=== PATIENT | male | born 1945 | race Caucasian/White ===

== ENCOUNTER 2021-05-18 06:44 | Observation (INO) | payer MEDICARE ==
[2021-05-18] MEDS ORDERED: Thrombin 5000 UNITS/5 ML VIAL ONE ×2 (08:21→10:51)
[2021-05-18] MEDS ORDERED: Fentanyl 100 MCG/2 ML VIAL ONE ×4 (08:32→12:31)
[2021-05-18] MEDS ORDERED: Dexmedetomidine 200 MCG/2 ML VIAL ONE (08:32)
[2021-05-18] MEDS ORDERED: SUGAMMADEX SODIUM 200 MG/2 ML VIAL ONE (08:33)
[2021-05-18] MEDS ORDERED: ceFAZolin (BATCH) 2 GM/100 ML BAG ONE (08:50)
[2021-05-18] MEDS ORDERED: traMADol HCl 50 MG TAB PO PRN (09:02)
[2021-05-18] MEDS ORDERED: Acetaminophen 325 MG TAB PO PRN (09:02)
[2021-05-18] MEDS ORDERED: Morphine 2 MG/ML VIAL SLOW IVP PRN (09:02)
[2021-05-18] MEDS ORDERED: Ondansetron PF 4 MG/2 ML Vial IVP PRN (09:02)
[2021-05-18] MEDS ORDERED: HYDROcodone/Acetaminophen 7.5/325 mg Tablet PO PRN (09:02)
[2021-05-18] MEDS ORDERED: Acetaminophen/Codeine 30-300mg Tablet PO PRN (09:02)
[2021-05-18] MEDS ORDERED: hydrALAZINE 20 MG/ML VIAL SLOW IVP PRN (09:04)
[2021-05-18] MEDS ORDERED: tiZANidine HCl 4 MG TAB PO PRN (09:04)
[2021-05-18] MEDS ORDERED: Rocuronium Bromide 10 MG/ML (10ML VIAL) ONE (09:11)
[2021-05-18] MEDS ORDERED: PHENYLEPHRINE-NS 100 MCG/ML 10 ML SYRINGE ONE ×4 (09:11→11:07)
[2021-05-18] MEDS ORDERED: Ondansetron PF 4 MG/2 ML Vial ONE (09:11)
[2021-05-18] MEDS ORDERED: Lidocaine 1% PF 5 ML VIAL ONE (09:11)
[2021-05-18] MEDS ORDERED: PROPOFOL 200 MG/20 ML VIAL ONE (09:11)
[2021-05-18] MEDS ORDERED: Glycopyrrolate 0.2 MG/ML 5 ML SYRINGE ONE (09:11)
[2021-05-18] MEDS ORDERED: ePHEDrine 50 MG/ML VIAL ONE (09:11)
[2021-05-18] MEDS ORDERED: Dexamethasone 20 MG/5 ML VIAL ONE (09:11)
[2021-05-18] MEDS ORDERED: Morphine 4 MG/ML VIAL SLOW IVP PRN (09:56)
[2021-05-18] MEDS ORDERED: Phenylephrine 10 MG/ML VIAL ONE ×2 (11:10→11:11)
[2021-05-18] MEDS ORDERED: Promethazine HCl 25 MG/ML VIAL IM PRN (11:42)
[2021-05-18] MEDS ORDERED: Ondansetron HCl/PF 4 MG/2 ML Vial IVP PRN (11:42)
[2021-05-18] MEDS ORDERED: Promethazine HCl 25 MG/ML VIAL IVPB PRN (11:42)
[2021-05-18] MEDS ORDERED: CARBIDOPA PO SCH ×2 (13:00→21:00)
[2021-05-18] MEDS ORDERED: LEVODOPA PO SCH ×2 (13:00→21:00)
[2021-05-18] MEDS ORDERED: Labetalol HCl 100 MG/20 ML VIAL ONE (13:31)
[2021-05-18 15:09] VITALS: BMI 29.4
[2021-05-18] MEDS: Sodium Chloride 0.9% 1,000 ML IV SCH (15:41)
[2021-05-18] MEDS ORDERED: ceFAZolin 2 GM/Dextrose 50 ML 2 GM in Premix Bag 1 BAG IVPB SCH (16:00)
[2021-05-18] MEDS ORDERED: CEFAZOLIN 2 GM, Admixture Fee 1 EACH in Sodium Chloride 0.9% 100 ML IVPB SCH (17:00)
[2021-05-18] MEDS ORDERED: Lisinopril 20 MG TAB PO SCH (17:00)
[2021-05-18] MEDS: Carbidopa/Levodopa [Rytary Er] 36.25 MG/145 MG Capsule.Er PO SCH ×2 (17:17→20:58)
[2021-05-18] MEDS: Carbidopa/Levodopa [Rytary Er] 61.25 MG/245 MG Capsule.Er PO SCH (20:58)
[2021-05-18] MEDS ORDERED: traZODone HCl 50 MG TAB PO SCH ×2 (21:00)
[2021-05-19] MEDS: Sodium Chloride 0.9% 1,000 ML IV SCH ×2 (00:43→04:25)
[2021-05-19] MEDS ORDERED: CEFAZOLIN 2 GM, Admixture Fee 1 EACH in Sodium Chloride 0.9% 100 ML IVPB SCH (04:00)
[2021-05-19] MEDS: Carbidopa/Levodopa [Rytary Er] 61.25 MG/245 MG Capsule.Er PO SCH ×2 (07:00→12:12)
[2021-05-19 07:35] VITALS: BP 120/66; TEMP 98.3
[2021-05-19] MEDS ORDERED: Lisinopril 20 MG TAB PO SCH ×2 (09:00)
== END 2021-05-19 15:24 | disposition home or self-care (01) ==
LOC: SDC 06:44 → MSONC 14:56
PROVIDERS: ADMIT Surgery; ATTEND Surgery
PROC: 01NB0ZZ Release Lumbar Nerve, Open Approach (ICD-10-PCS; principal; 2021-05-18)
DX: M48.062 Spinal stenosis, lumbar region with neurogenic claudication (principal); M54.16 Radiculopathy, lumbar region; M80.88XA Other osteoporosis with current pathological fracture, vertebra(e), initial encounter for fracture; G20 Parkinson's disease; Z79.899 Other long term (current) drug therapy; W19.XXXA Unspecified fall, initial encounter
CPT/HCPCS: 63047; 63048 ×2; 72020; 96365; 96375; 96376; G0378 ×2; J0360; J0690; J1100; J2370; J2405; J2704; J3010; J3370; J3490; J7050

== ENCOUNTER 2021-06-13 17:01 | Emergency (ER) | payer MEDICARE ==
[2021-06-13] MEDS ORDERED: Aspirin Chewable 81 MG TAB ONE (17:38)
[2021-06-13] MEDS ORDERED: Nitroglycerin 2% Ointment 1 INCH/1 GM Packet ONE (17:38)
[2021-06-13 17:40] LABS: #Eosinphils 0.2 thou/uL (0.0-0.7); #Lymphocytes 1.3 thou/uL (1.20-3.40); #Monocytes 0.7 thou/uL (0.11-0.59); #Neutrophils 7.2 thou/uL (1.40-6.50); %Eosinophils 2.1 % (0.0-10.0); %Lymphocytes 13.3 % (21.0-51.0); %Monocytes 7.7 % (0.0-10.0); %Neutrophils 76.9 % (42.0-75.0); Hemoglobin 15.3 g/dL (14.0-18.0); Mean Corpuscular HGB CONC 34.1 g/dL (32.0-36.0); Mean Corpuscular Volume 99.6 fL (78.0-98.0); Mean Platelet Volume 5.8 fL (7.4-10.4); Platelet Count 267 thou/uL (130-400); RBC Distribution Width 12.1 % (11.5-14.5); Red Blood Cell (RBC) Count 4.51 mill/uL (4.70-6.10); White Blood Cell (WBC) Count 9.4 thou/uL (4.8-10.8)
[2021-06-13 18:24] LABS: ALT (SGPT) 7 U/L (8-55); AST (SGOT) 29 U/L (5-34); Albumin 4.2 g/dL (3.4-4.8); Alkaline Phosphatase 93 U/L (40-110); Anion Gap 17 mmol/L (10-20); BUN (Urea Nitrogen) 10 mg/dL (8.4-25.7); Bilirubin, Total 0.7 mg/dL (0.2-1.2); Calc. Creatinine Clearance 0 mL/min (70-130); Calcium 9.5 mg/dL (7.8-10.44); Carbon Dioxide 21 mmol/L (23-31); Chloride 104 mmol/L (98-107); Globulin 3.4 g/dL (2.4-3.5); Glucose 108 mg/dL (83-110); Lipase 6 U/L (8-78); Potassium 4.6 mmol/L (3.5-5.1); Protein, Total 7.6 g/dL (5.8-8.1); Sodium 137 mmol/L (136-145)
[2021-06-13 19:28] LABS: Bilirubin Negative (Negative); Blood, Urine Negative (Negative); Clarity Turbid (Clear); Glucose, Urine (Dipstick) Normal (Negative); Ketone, Urine Negative (Negative); Leukocyte Negative Leu/uL (Negative); Nitrite Negative (Negative); Protein, Urine (Dipstick) Negative (Neg-Trace); Specific Gravity, Urine 1.013 (1.002-1.036); Urobilinogen Normal mg/dL (Less than 2); pH, Urine 7.5 (5.0-9.0)
== END 2021-06-13 19:45 | disposition home or self-care (01) ==
LOC: ERS 17:01
DX: I10 Essential (primary) hypertension (principal); R07.89 Other chest pain; Z79.899 Other long term (current) drug therapy
CPT/HCPCS: 71045; 80053; 81003; 83690; 83880; 84484; 85025; 93005

== ENCOUNTER 2021-08-17 09:15 | Emergency (ER) | payer MEDICARE ==
[2021-08-17 09:59] LABS: #Eosinphils 0.2 thou/uL (0.0-0.7); #Lymphocytes 1.3 thou/uL (1.20-3.40); #Monocytes 0.9 thou/uL (0.11-0.59); #Neutrophils 8.2 thou/uL (1.40-6.50); %Basophils 0.1 % (0.0-1.0); %Eosinophils 1.7 % (0.0-10.0); %Lymphocytes 12.5 % (21.0-51.0); %Monocytes 8.3 % (0.0-10.0); %Neutrophils 77.4 % (42.0-75.0); Hemoglobin 15.6 g/dL (14.0-18.0); Mean Corpuscular HGB CONC 32.9 g/dL (32.0-36.0); Mean Corpuscular Hemoglobin 32.9 pg (27.0-31.0); Mean Corpuscular Volume 99.9 fL (78.0-98.0); Platelet Count 214 thou/uL (130-400); RBC Distribution Width 12.1 % (11.5-14.5); Red Blood Cell (RBC) Count 4.75 mill/uL (4.70-6.10); White Blood Cell (WBC) Count 10.5 thou/uL (4.8-10.8)
[2021-08-17 10:07] LABS: Bilirubin Negative (Negative); Blood, Urine Negative (Negative); Clarity Turbid (Clear); Glucose, Urine (Dipstick) Normal (Negative); Ketone, Urine Negative (Negative); Leukocyte Negative Leu/uL (Negative); Nitrite Negative (Negative); Protein, Urine (Dipstick) Negative (Neg-Trace); Specific Gravity, Urine 1.017 (1.002-1.036); Urobilinogen Normal mg/dL (Less than 2)
[2021-08-17 10:20] LABS: ALT (SGPT) Less than 7 U/L (8-55); AST (SGOT) 16 U/L (5-34); Albumin 3.7 g/dL (3.4-4.8); Alkaline Phosphatase 91 U/L (40-110); Anion Gap 14 mmol/L (10-20); BUN (Urea Nitrogen) 14 mg/dL (8.4-25.7); Bilirubin, Total 0.5 mg/dL (0.2-1.2); Calc. Creatinine Clearance 0 mL/min (70-130); Calcium 9.3 mg/dL (7.8-10.44); Carbon Dioxide 23 mmol/L (23-31); Chloride 104 mmol/L (98-107); Estimated GFR 98; Globulin 2.9 g/dL (2.4-3.5); Glucose 95 mg/dL (83-110); Magnesium 2.2 mg/dL (1.6-2.6); Protein, Total 6.6 g/dL (5.8-8.1); Sodium 137 mmol/L (136-145)
== END 2021-08-17 14:53 | disposition left against medical advice (07) ==
LOC: ERS 09:15
DX: R41.82 Altered mental status, unspecified (principal); G45.9 Transient cerebral ischemic attack, unspecified; I10 Essential (primary) hypertension; G20 Parkinson's disease; Z79.899 Other long term (current) drug therapy
CPT/HCPCS: 36415; 70450; 71045; 80053; 81003; 83605; 83735; 83880; 84484; 85025; 87040; 87086; 93005

== ENCOUNTER 2022-12-10 06:51 | Day surgery (SDC) | payer MEDICARE ==
[2022-12-09 11:23] VITALS: BMI 24.7
[2022-12-10] MEDS ORDERED: PROPOFOL 200 MG/20 ML VIAL ONE (08:36)
[2022-12-10] MEDS ORDERED: Lidocaine 1% PF 5 ML VIAL ONE (08:36)
== END 2022-12-10 08:45 | disposition home or self-care (01) ==
LOC: SJX 06:51
PROVIDERS: ATTEND Internal Medicine Gastroenterology
PROC: 0DBE8ZX Excision of Large Intestine, Via Natural or Artificial Opening Endoscopic, Diagnostic (ICD-10-PCS; principal; 2022-12-10)
DX: K52.9 Noninfective gastroenteritis and colitis, unspecified (principal); R63.4 Abnormal weight loss; G30.9 Alzheimer's disease, unspecified; F02.80 Dementia in other diseases classified elsewhere, unspecified severity, without behavioral disturbance, psychotic disturbance, mood disturbance, and anxiety; I10 Essential (primary) hypertension; Z98.890 Other specified postprocedural states; Z79.899 Other long term (current) drug therapy
CPT/HCPCS: 88305; 88341; 88342; J2704

== ENCOUNTER 2023-02-16 09:01 | Inpatient (IN) | payer MEDICARE ==
[2023-02-16] MEDS ORDERED: Sodium Chloride 0.9% 100 ML ONE (09:56)
[2023-02-16] MEDS ORDERED: cefTRIAXone (ROCEPHIN) 2 GM VIAL ONE (09:56)
[2023-02-16 10:06] LABS: SARS-CoV-2 NAA Rapid Test DETECTED (NotDetected)
[2023-02-16 10:28] LABS: #Basophils 0.1 thou/uL (0.0-0.2); #Monocytes 1.2 thou/uL (0.11-0.59); #Neutrophils 20.8 thou/uL (1.40-6.50); %Basophils 0.2 % (0.0-1.0); %Lymphocytes 1.5 % (21.0-51.0); %Monocytes 5.3 % (0.0-10.0); Hematocrit 46.4 % (42.0-52.0); Hemoglobin 15.2 g/dL (14.0-18.0); Mean Corpuscular HGB CONC 32.8 g/dL (32.0-36.0); Mean Corpuscular Hemoglobin 33.8 pg (27.0-31.0); Mean Corpuscular Volume 103.1 fl (78.0-98.0); Mean Platelet Volume 9.9 fL (7.4-10.4); Platelet Count 271 10x3/uL (130-400); RBC Distribution Width 13.9 % (11.5-14.5); White Blood Cell (WBC) Count 22.6 10x3/uL (4.8-10.8)
[2023-02-16] MEDS ORDERED: fentaNYL 50 mcg/mL 1 mL Vial ONE (10:31)
[2023-02-16] MEDS ORDERED: Azithromycin 500 MG VIAL ONE (10:32)
[2023-02-16 11:10] LABS: Troponin I Less than 0.010 ng/mL (< 0.028)
[2023-02-16 11:13] LABS: ALT (SGPT) Less than 7 U/L (8-55); AST (SGOT) 15 U/L (5-34); Albumin 3.6 g/dL (3.4-4.8); Alkaline Phosphatase 61 U/L (40-110); Anion Gap 16 mmol/L (10-20); BUN (Urea Nitrogen) 9 mg/dL (8.4-25.7); Bilirubin, Total 1.2 mg/dL (0.2-1.2); Calc. Creatinine Clearance 0 mL/min (70-130); Calcium 8.6 mg/dL (7.8-10.44); Carbon Dioxide 26 mmol/L (23-31); Chloride 101 mmol/L (98-107); Estimated GFR 103; Globulin 2.5 g/dL (2.4-3.5); Glucose 90 mg/dL (83-110); Potassium 3.9 mmol/L (3.5-5.1); Protein, Total 6.1 g/dL (5.8-8.1); Sodium 139 mmol/L (136-145)
[2023-02-16 14:53] LABS: Troponin I Less than 0.010 ng/mL (< 0.028)
[2023-02-16] MEDS ORDERED: Acetaminophen 325 MG TAB PO PRN (16:43)
[2023-02-16] MEDS ORDERED: Ondansetron PF 4 MG/2 ML Vial IVP PRN (16:43)
[2023-02-16] MEDS ORDERED: Acetaminophen/Codeine 30-300mg Tablet PO PRN (16:54)
[2023-02-16] MEDS ORDERED: hydrALAZINE 25 MG TAB PO PRN (16:54)
[2023-02-16 18:08] LABS: Troponin I Less than 0.010 ng/mL (< 0.028)
[2023-02-16] MEDS ORDERED: QUEtiapine 25 MG TAB PO SCH (21:00)
[2023-02-16] MEDS ORDERED: traZODone HCl 50 MG TAB PO SCH (21:00)
[2023-02-17] MEDS ORDERED: Donepezil HCl 5 MG TAB PO SCH (09:00)
[2023-02-17] MEDS ORDERED: Amlodipine 5 MG TAB PO SCH (09:00)
[2023-02-17] MEDS ORDERED: Pimavanserin Tartrate [Nuplazid] 34 MG Capsule PO SCH (17:00)
== END 2023-02-16 19:17 | disposition home or self-care (01) | DRG 177 ==
LOC: ERS 09:01 → ERHOLD 14:50
PROVIDERS: ADMIT Student in an Organized Health Care Education/Training Program; ATTEND Student in an Organized Health Care Education/Training Program
PROC: 8E0ZXY6 Isolation (ICD-10-PCS; principal; 2023-02-16)
DX: U07.1 COVID-19 (principal); J12.82 Pneumonia due to coronavirus disease 2019; J69.0 Pneumonitis due to inhalation of food and vomit; G20.A1 Parkinson's disease without dyskinesia, without mention of fluctuations; I10 Essential (primary) hypertension; Z79.899 Other long term (current) drug therapy; Z98.890 Other specified postprocedural states; G47.00 Insomnia, unspecified
CPT/HCPCS: 36415; 71045; 80053; 83880; 84145; 84484; 85025; 93005; J0456; J0696; J3010; J3490